=== PATIENT | female | born 1980 | race Caucasian/White ===

== ENCOUNTER → 2017-03-25 | Outpatient (CLI) | payer OTHER ==
[~2017-03-25] MED LIST: ATOR-24 PO; CRDCD/180 PO; CYM/30 PO; PANT1TAB48 PO
[2017-03-25 11:52] LABS: GLUCOSE,FASTING 95 mg/dl (70-99)
[2017-03-25 12:00] LABS: CHOLESTEROL 207 mg/dl (0-200); CHOLESTEROL/HDL RATIO 4.4; HDL CHOLESTEROL 47 mg/dl; TRIGLYCERIDES 121 mg/dl (0-150); VERY LOW DENSITY LIPOPROT CALC 24 mg/dl
== END | disposition home or self-care (01) ==
LOC: C.LABBC 07:32
PROVIDERS: ATTEND Physician Assistant Medical
DX: Z00.00 Encounter for general adult medical examination without abnormal findings (principal)

== ENCOUNTER → 2017-03-27 | Outpatient (CLI) | payer OTHER | END | disposition home or self-care (01) | LOC: C.LABBC 07:30 | PROVIDERS: ATTEND Physician Assistant | DX: R22.1 Localized swelling, mass and lump, neck (principal) ==

== ENCOUNTER → 2017-03-28 | Outpatient (CLI) | payer OTHER ==
--- NOTE | 2017-03-28 15:23 | DIAGNOSTIC IMAGING REPORT ---
SOFT TIS HEAD/NECK-THYROID HISTORY: Pain. Edema. NECK SWELLING COMPARISON: None. FINDINGS: Survey ultrasonic evaluation of the soft tissue neck was performed with attention to patient's stated area of discomfort/nodularity. No ultrasonic abnormalities identified at that site. Survey evaluation of the thyroid demonstrates a 4 mm nodule of the inferior right thyroid lobe considered low suspicion. No additional abnormalities are identified. IMPRESSION: No evidence for mass pathology at the patient's site of tenderness, dysphagia. Incidental note is made of a very low suspicion 4 Millimeter right thyroid nodule The above report was generated using voice recognition software. It may contain grammatical, syntax or spelling errors. Electronically signed by: Arturo Boyd M.D. 03/28/2017 3:21 PM Dictated Date/Time: 03/28/2017 3:19 PM
== END | disposition home or self-care (01) ==
LOC: C.ULTRBC 14:43
PROVIDERS: ATTEND Physician Assistant
DX: R22.1 Localized swelling, mass and lump, neck (principal)

== ENCOUNTER → 2017-04-22 | Outpatient (CLI) | payer OTHER | END | disposition home or self-care (01) | LOC: C.LABBC 08:21 | PROVIDERS: ATTEND Physician Assistant Medical | DX: E83.52 Hypercalcemia (principal) ==

== ENCOUNTER → 2017-04-25 | Outpatient (CLI) | payer OTHER | END | disposition home or self-care (01) | LOC: C.PATHSPEC 11:24 | PROVIDERS: ATTEND Plastic Surgery | DX: L90.5 Scar conditions and fibrosis of skin (principal) ==

== ENCOUNTER → 2017-05-31 | Outpatient (CLI) | payer OTHER ==
--- NOTE | 2017-05-31 14:27 | DIAGNOSTIC IMAGING REPORT ---
THORACIC SPINE 3 VIEWS ROUTINE CLINICAL HISTORY: Thoracic back pain. COMPARISON STUDY: No previous studies for comparison. FINDINGS: There are cholecystectomy clips. There is slight levoscoliosis of the lower thoracic spine and dextroscoliosis of the thoracolumbar junction. Vertebral body heights are maintained. There is no fracture or suspicious lesion within the thoracic spine by radiography. There is mild multilevel disc space narrowing. IMPRESSION: 1. No thoracic spine fracture or subluxation. 2. Mild multilevel degenerative disc disease of the thoracic spine. 3. Minimal shaped curvature of the lower thoracic and upper lumbar spine. Electronically signed by: Tomas Marcos M.D. 05/31/2017 2:25 PM Dictated Date/Time: 05/31/2017 2:24 PM
--- NOTE | 2017-05-31 14:44 | DIAGNOSTIC IMAGING REPORT ---
CERVICAL SPINE 5 VIEWS HISTORY: CERVICALGIA; THORACIC BACK PAIN COMPARISON: None. FINDINGS: The cervical spine is visualized from C1 through the superior endplate of T1. There is no fracture. No subluxation. Disc spaces are preserved. Prevertebral soft tissues and the atlantodens interval are intact. IMPRESSION: No fracture or subluxation within the cervical spine. Electronically signed by: Reece Edward M.D. 05/31/2017 2:43 PM Dictated Date/Time: 05/31/2017 2:40 PM
== END | disposition home or self-care (01) ==
LOC: C.RADBC 14:03
PROVIDERS: ATTEND Physician Assistant Medical
DX: M54.2 Cervicalgia (principal); M54.6 Pain in thoracic spine

== ENCOUNTER → 2017-08-21 | Outpatient (CLI) | payer OTHER ==
[~2017-08-21] MED LIST changes: +CALC600T37 PO; +CHOL2000 PO; +FAMO20TA9 PO; +FLUO20TA27 PO; +GABA-112 PO; +GABA-113 PO; +NXM/40 PO; +ONDA4TAB10 SL; +PANT1TAB3 PO; -PANT1TAB48 PO
== END | disposition home or self-care (01) ==
LOC: C.LABBC 08:13
PROVIDERS: ATTEND Surgery Surgical Oncology
DX: N25.81 Secondary hyperparathyroidism of renal origin (principal); E55.9 Vitamin D deficiency, unspecified

== ENCOUNTER 2017-08-22 19:01 | Emergency (ER) | payer OTHER ==
[~2017-08-22] VITALS: Ht 172.7 cm; Wt 100.0 kg
[~2017-08-22 19:01] MED LIST changes: -CALC600T37 PO; -CHOL2000 PO; -FAMO20TA9 PO; -FLUO20TA27 PO; -GABA-112 PO; -GABA-113 PO; -NXM/40 PO; -ONDA4TAB10 SL
[2017-08-22 19:05] VITALS: TEMP 37.6; Ht 172.7 cm; Wt 100.0 kg
[2017-08-22] MEDS ORDERED: ONDANSETRON INJ 2 MG/ML 2 ML VIAL IV STA ×2 (19:19→21:25)
[2017-08-22] MEDS ORDERED: SODIUM CHLORIDE 0.9% 1000ML 1,000 ML IV STA (19:19)
[2017-08-22 19:33] LABS: BASO % 0.1 %; BASO ABS # 0.01 K/uL (0-0.2); EOS % 0.1 %; EOS ABS # 0.02 K/uL (0-0.5); HEMATOCRIT 42.8 % (37-47); IG# 0.06 K/uL (0.00-0.02); LYMPH % 2.6 %; LYMPH ABS # 0.46 K/uL (1.2-3.4); MEAN CELL VOLUME 89.2 fL (80-100); MEAN CORPUSCULAR HEMOGLOBIN 31.3 pg (25-34); MEAN PLATELET VOLUME 9.3 fL (7.4-10.4); MONO % 2.3 %; MONO ABS # 0.41 K/uL (0.11-0.59); NEUT % 94.6 %; NEUT ABS # 16.72 K/uL (1.4-6.5); PLATELET COUNT 347 K/uL (130-400); RED CELL DISTRIBUTION WIDTH CV 13.3 % (11.5-14.5); RED CELL DISTRIBUTION WIDTH SD 43.4 fL (36.4-46.3); WHITE BLOOD COUNT 17.68 K/uL (4.8-10.8)
--- NOTE | 2017-08-22 19:36 | EMERGENCY ROOM VISIT NOTE ---
History Report prepared by Jose David: Dionisio Santillan Under the Supervision of: Dr. Tyrone Leon M.D. 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 She notes pain around her low abdomen. She notes fevers, loss of appetite, nausea, vomiting, and diarrhea. She notes severe pain on her right abdomen radiating to her back. She currently rates her pain an 8/10 in severity. She has a history of cholecystectomy, hysterectomy. She denies any urinary symptoms. She denies any history of colitis. 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 Review of Systems See HPI for pertinent positives and negatives. A total of ten systems were reviewed and were otherwise negative. Past Medical & Surgical Medical Problems: (1) Anxiety disorder (2) chronic hematuria (3) H/O dilation and evacuation (4) History of supraventricular tachycardia (5) Hypercholesteremia (6) Menorrhagia Surgical Problems: (1) H/O dilation and curettage (2) H/O: hysterectomy (3) History of cholecystectomy (4) History of hysterectomy (5) Hx of cholecystectomy Family History No pertinent family history Social History Smoking Status: Never Smoker Smokeless Tobacco Use: No Alcohol Use: none Drug Use: none Marital Status: Housing Status: lives with family Occupation Status: employed Current/Historical Medications Scheduled Atorvastatin (Lipitor), 40 MG PO Q2D Calcium (Calcium), 600 MG PO BID Cholecalciferol (Vitamin D3), 2,000 INTER.UNIT PO DAILY Esomeprazole Magnesium (Nexium), 40 MG PO QAM Famotidine (Pepcid), 20 MG PO BID Fluoxetine HCl (Pmdd) (Fluoxetine HCl), 70 MG PO QAM Gabapentin (Neurontin), 200 MG PO HS Gabapentin (Neurontin), 300 MG PO HS Ondasetron Odt (Zofran Odt), 4 MG SL Q6H Allergies Coded Allergies: Acetaminophen (Unverified Adverse Reaction, Unknown, NAUSEA, 08/22/17) Hydrocodone (Unverified Adverse Reaction, Unknown, NAUSEA, 08/22/17) Physical Exam Vital Signs Date Time Temp Pulse Resp B/P (MAP) Pulse Ox O2 Delivery O2 Flow Rate FiO2 08/22/17 23:01 110 24 95 08/22/17 23:00 110/58 08/22/17 22:46 115 23 95 08/22/17 22:31 112 22 95 08/22/17 22:30 109/57 08/22/17 22:16 115 26 94 08/22/17 22:01 117 24 94 08/22/17 22:00 123/70 08/22/17 21:47 114 20 120/67 93 08/22/17 21:46 117 17 93 08/22/17 21:37 120/67 08/22/17 21:31 123 16 93 08/22/17 21:16 128 23 94 08/22/17 21:01 125 28 93 08/22/17 21:00 124 08/22/17 20:52 121 20 128/76 94 Room Air 08/22/17 20:49 128/76 08/22/17 19:05 37.6 138 19 132/81 95 Room Air Physical Exam GENERAL: Awake, alert, uncomfortable-appearing, in no distress HENT: Normocephalic, atraumatic. Oropharynx unremarkable. EYES: Normal conjunctiva. Sclera non-icteric. NECK: Supple. No nuchal rigidity. FROM. No JVD. RESPIRATORY: Clear to auscultation. CARDIAC: Regular rate, normal rhythm. Extremities warm and well perfused. Pulses equal. ABDOMEN: Soft, non-distended. Generalized abdominal pain most prominent in RLQ, no peritoneal signs. No rebound or guarding. No masses. RECTAL: Deferred. MUSCULOSKELETAL: Chest examination reveals no tenderness. The back is symmetrical on inspection without obvious abnormality. There is no CVA tenderness to palpation. No joint edema. LOWER EXTREMITIES: Calves are equal size bilaterally and non-tender. No edema. No discoloration. NEURO: Normal sensorium. No sensory or motor deficits noted. SKIN: No rash or jaundice noted. Medical Decision & Procedures ER Provider Diagnostic Interpretation: Radiology results as stated below per my review and radiologist interpretation: ABD/PELVIS IV CONTRAST ONLY CT DOSE: 1276.77 mGy.cm HISTORY: Flank pain RLQ pain TECHNIQUE: Multiaxial CT images of the abdomen and pelvis were performed following the use of intravenous contrast. A dose lowering technique was utilized adhering to the principles of ALARA. COMPARISON STUDY: 09/06/2014 FINDINGS: Minimal dependent basilar atelectasis. Mild fatty infiltration of liver. Prior cholecystectomy. Kidneys enhance uniformly. Bowel pattern is nonobstructive. Several fluid-filled loops of small bowel showing no evidence for distention. Slight hyperemia of the proximal to mid small bowel suggesting mild enteritis. Appendix is normal. Bowel pattern with reference specifically to the colon is unremarkable. Bladder is midline. IMPRESSION: 1. Mild enteritis. 2. Mild reactive small bowel ileus. 3. Normal appendix. 4. Prior cholecystectomy. The above report was generated using voice recognition software. It may contain grammatical, syntax or spelling errors. Electronically signed by: Arturo Boyd M.D. 08/22/2017 8:41 PM Dictated Date/Time: 08/22/2017 8:39 PM Laboratory Results 08/22/17 19:20 Red Blood Count 4.80, Mean Corpuscular Volume 89.2, Mean Corpuscular Hemoglobin 31.3, Mean Corpuscular Hemoglobin Concent 35.0, Mean Platelet Volume 9.3, Neutrophils (%) (Auto) 94.6, Lymphocytes (%) (Auto) 2.6, Monocytes (%) (Auto) 2.3, Eosinophils (%) (Auto) 0.1, Basophils (%) (Auto) 0.1, Neutrophils # (Auto) 16.72, Lymphocytes # (Auto) 0.46, Monocytes # (Auto) 0.41, Eosinophils # (Auto) 0.02, Basophils # (Auto) 0.01 08/22/17 19:20 Test 08/22/17 19:20 08/22/17 20:48 White Blood Count 17.68 K/uL (4.8-10.8) Red Blood Count 4.80 M/uL (4.2-5.4) Hemoglobin 15.0 g/dL (12.0-16.0) Hematocrit 42.8 % (37-47) Mean Corpuscular Volume 89.2 fL (80-100) Mean Corpuscular Hemoglobin 31.3 pg (25-34) Mean Corpuscular Hemoglobin Concent 35.0 g/dl (32-36) Platelet Count 347 K/uL (130-400) Mean Platelet Volume 9.3 fL (7.4-10.4) Neutrophils (%) (Auto) 94.6 % Lymphocytes (%) (Auto) 2.6 % Monocytes (%) (Auto) 2.3 % Eosinophils (%) (Auto) 0.1 % Basophils (%) (Auto) 0.1 % Neutrophils # (Auto) 16.72 K/uL (1.4-6.5) Lymphocytes # (Auto) 0.46 K/uL (1.2-3.4) Monocytes # (Auto) 0.41 K/uL (0.11-0.59) Eosinophils # (Auto) 0.02 K/uL (0-0.5) Basophils # (Auto) 0.01 K/uL (0-0.2) RDW Standard Deviation 43.4 fL (36.4-46.3) RDW Coefficient of Variation 13.3 % (11.5-14.5) Immature Granulocyte % (Auto) 0.3 % Immature Granulocyte # (Auto) 0.06 K/uL (0.00-0.02) Anion Gap 11.0 mmol/L (3-11) Est Creatinine Clear Calc Drug Dose 89.1 ml/min Estimated GFR () 76.2 Estimated GFR (Non- 65.7 BUN/Creatinine Ratio 11.2 (10-20) Calcium Level 8.9 mg/dl (8.5-10.1) Total Bilirubin 0.8 mg/dl (0.2-1) Direct Bilirubin 0.1 mg/dl (0-0.2) Aspartate Amino Transf (AST/SGOT) 20 U/L (15-37) Alanine Aminotransferase (ALT/SGPT) 26 U/L (12-78) Alkaline Phosphatase 82 U/L (45-117) Total Protein 8.2 gm/dl (6.4-8.2) Albumin 3.9 gm/dl (3.4-5.0) Lipase 85 U/L (73-393) Urine Color YELLOW Urine Appearance CLEAR (CLEAR) Urine pH 7.0 (4.5-7.5) Urine Specific [place] 1.027 (1.000-1.030) Urine Protein NEG (NEG) Urine Glucose (UA) NEG (NEG) Urine Ketones 1+ (NEG) Urine Occult Blood TRACE (NEG) Urine Nitrite NEG (NEG) Urine Bilirubin NEG (NEG) Urine Urobilinogen NEG (NEG) Urine Leukocyte Esterase NEG (NEG) Urine WBC (Auto) 1-5 /hpf (0-5) Urine RBC (Auto) 5-10 /hpf (0-4) Urine Hyaline Casts (Auto) 1-5 /lpf (0-5) Urine Epithelial Cells (Auto) 10-20 /lpf (0-5) Urine Bacteria (Auto) NEG (NEG) Urine Test NEG (NEG) Laboratory results reviewed by me Medications Administered Medications (Trade) Dose Ordered Sig/Joel Route Start Time Stop Time Status Last Admin Dose Admin Sodium Chloride 1,000 ml @ 999 mls/hr Q1H1M STAT IV 08/22/17 19:19 08/22/17 20:19 DC 08/22/17 19:30 999 MLS/HR Ondansetron HCl (Zofran Inj) 4 mg NOW STAT IV 08/22/17 19:19 08/22/17 19:21 DC 08/22/17 19:30 4 MG Fentanyl Citrate (Fentanyl Inj) 50 mcg NOW STAT IV 08/22/17 19:50 08/22/17 19:51 DC 08/22/17 19:56 50 MCG Sodium Chloride 2,000 ml @ 999 mls/hr Q2H1M STAT IV 08/22/17 21:25 08/22/17 23:25 DC 08/22/17 21:38 999 MLS/HR Ondansetron HCl (Zofran Inj) 4 mg NOW STAT IV 08/22/17 21:25 08/22/17 21:29 DC 08/22/17 21:38 4 MG Famotidine (Pepcid 20mg Iv Push) 20 mg NOW STAT IV 08/22/17 21:25 08/22/17 21:29 DC 08/22/17 21:38 20 MG Ketorolac Tromethamine (Toradol Inj) 15 mg NOW STAT IV 08/22/17 21:25 08/22/17 21:29 DC 08/22/17 21:38 15 MG ED Course 1926: The patient was evaluated in room A12B. A complete history and physical exam was performed. 2119: I reassessed the patient at this time. She is resting comfortably. 2248: I reassessed the patient at this time. She is feeling better and resting comfortably. I discussed the results and treatment plan with the patient. I answered all pertaining questions that she had. She expressed understanding and verbalized agreement. The patient will be discharged home. Medical Decision I reviewed the patient's past medical history, medications, and the nursing notes as described above. The patient's presentation and history were concerning for appendicitis, gastroenteritis, colitis, diverticulitis, UTI, and renal stone. The patient is a 37-year-old woman who presents emergency Department with generalized abdominal pain with nausea and vomiting per history of present illness. On arrival the patient is uncomfortable but no acute distress, afebrile with heart rate in the 130s with otherwise stable blood pressure. Appears clinically dry. She has generalized abdominal tenderness most prominently in the right lower quadrant. Labs notable for WBC of 17. Otherwise labs unremarkable without any anion gap to suggest acidosis. CT scan demonstrating likely enteritis with possible associated mild ileus. Patient's heart rate improving to 90-100s after IV fluid hydration. The patient was also clinically improved able to tolerate oral liquids. Given CT scan without any concerning emergent findings symptoms most likely secondary to viral gastroenteritis. Plan for supportive care. Encouraged oral hydration at home and was also given strict return instructions. Of note the patient does have a history of hematuria in the past thought to believed to be secondary to sloughing of her bladder wall. She will follow-up with her PCP regarding this and also her presenting symptoms. Findings and plan for follow-up reviewed with patient. Patient agreeable and d/c'd per discharge instructions. Medication Reconcilliation Current Medication List: was personally reviewed by me Blood Pressure Screening Patient's blood pressure: Normal blood pressure Impression Primary Impression: Gastroenteritis Additional Impression: Microscopic hematuria Scribe Attestation The scribe's documentation has been prepared under my direction and personally reviewed by me in its entirety. I confirm that the note above accurately reflects all work, treatment, procedures, and medical decision making performed by me. Departure Information Dispostion Home / Self-Care Prescriptions Famotidine (PEPCID) 20 Mg Tab 20 MG PO BID for 7 Days, #14 TAB Prov: Tyrone Leon M.D. 08/22/17 Ondasetron Odt (ZOFRAN ODT) 4 Mg Tab 4 MG SL Q6H for Nausea, #10 TAB Prov: Tyrone Leon M.D. 08/22/17 Referrals Jorge Rubio PA-C (PCP) Forms HOME CARE DOCUMENTATION FORM, IMPORTANT VISIT INFORMATION Patient Instructions ED Gastroenteritis Viral, ED Hematuria, My [facility] Additional Instructions Please follow up with your primary care physician in the next 1-3 days for re- evaluation and to repeat your urine analysis, which had a small amount of blood. You likely have a viral gastroenteritis. Otherwise, your exam, lab results, and CT scan did not show signs of an emergent condition at this time. Zofran as needed for nausea. Pepcid for acid reduction as directed. Ensure hydration. Advanced BRAT diet slowly as tolerated. Return to the emergency department for worsening symptoms as described in the accompanying instructions. Problem Qualifiers
[2017-08-22] MEDS ORDERED: FLUO20TA27 PO (19:49)
[2017-08-22] MEDS ORDERED: CHOL2000 PO (19:49)
[2017-08-22] MEDS ORDERED: GABA-112 PO (19:49)
[2017-08-22] MEDS ORDERED: NXM/40 PO (19:49)
[2017-08-22] MEDS ORDERED: CALC600T37 PO (19:49)
[2017-08-22] MEDS ORDERED: GABA-113 PO (19:49)
[2017-08-22] MEDS ORDERED: FENTANYL CITRATE INJ 50 MCG/1 ML 2 ML VIAL IV STA (19:50)
[2017-08-22] MEDS ORDERED: OPTIRAY 320 IV PRN (20:00)
[2017-08-22 20:03] LABS: ALBUMIN 3.9 gm/dl (3.4-5.0); CALCIUM 8.9 mg/dl (8.5-10.1); CREATININE 1.09 mg/dl (0.60-1.20); POTASSIUM 3.7 mmol/L (3.5-5.1)
[2017-08-22 20:06] LABS: TOTAL PROTEIN 8.2 gm/dl (6.4-8.2)
--- NOTE | 2017-08-22 20:43 | DIAGNOSTIC IMAGING REPORT ---
ABD/PELVIS IV CONTRAST ONLY CT DOSE: 1276.77 mGy.cm HISTORY: Flank pain RLQ pain TECHNIQUE: Multiaxial CT images of the abdomen and pelvis were performed following the use of intravenous contrast. A dose lowering technique was utilized adhering to the principles of ALARA. COMPARISON STUDY: 09/06/2014 FINDINGS: Minimal dependent basilar atelectasis. Mild fatty infiltration of liver. Prior cholecystectomy. Kidneys enhance uniformly. Bowel pattern is nonobstructive. Several fluid-filled loops of small bowel showing no evidence for distention. Slight hyperemia of the proximal to mid small bowel suggesting mild enteritis. Appendix is normal. Bowel pattern with reference specifically to the colon is unremarkable. Bladder is midline. IMPRESSION: 1. Mild enteritis. 2. Mild reactive small bowel ileus. 3. Normal appendix. 4. Prior cholecystectomy. The above report was generated using voice recognition software. It may contain grammatical, syntax or spelling errors. Electronically signed by: Arturo Boyd M.D. 08/22/2017 8:41 PM Dictated Date/Time: 08/22/2017 8:39 PM
[2017-08-22] MEDS ORDERED: FAMOTIDINE 20MG/5ML IV PUSH IV STA (21:25)
[2017-08-22] MEDS ORDERED: KETOROLAC TROMETHAMINE 30 MG/ML VIAL IV STA (21:25)
[2017-08-22] MEDS ORDERED: SODIUM CHLORIDE 0.9% 1000ML 2,000 ML IV STA (21:25)
[2017-08-22] MEDS ORDERED: FAMO20TA9 PO (22:53)
[2017-08-22] MEDS ORDERED: ONDA4TAB10 SL (22:53)
[2017-08-22 23:00] VITALS: BP 110/58
[2017-08-22 23:01] VITALS: PULSE 110; O2SAT 95
== END 2017-08-22 23:04 | disposition home or self-care (01) ==
LOC: C.EDB 19:03 → C.EDA 23:04
DX: K52.9 Noninfective gastroenteritis and colitis, unspecified (principal); R31.29 Other microscopic hematuria; Z90.49 Acquired absence of other specified parts of digestive tract; Z90.710 Acquired absence of both cervix and uterus; F41.9 Anxiety disorder, unspecified; E78.00 Pure hypercholesterolemia, unspecified; Z79.899 Other long term (current) drug therapy

== ENCOUNTER → 2017-09-10 | Outpatient (CLI) | payer OTHER ==
[~2017-09-10] MED LIST changes: +CALC600T37 PO; +CHOL2000 PO; -CRDCD/180 PO; -CYM/30 PO; +FLUO20TA27 PO; +GABA-112 PO; +GABA-113 PO; +NXM/40 PO; +ONDA4TAB10 SL; -PANT1TAB3 PO
== END | disposition home or self-care (01) ==
LOC: C.PAPS 07:45
PROVIDERS: ATTEND Physician Assistant
DX: Z12.4 Encounter for screening for malignant neoplasm of cervix (principal)

== ENCOUNTER → 2017-09-16 | Outpatient (CLI) | payer OTHER ==
--- NOTE | 2017-09-16 15:04 | MAMMOGRAPHY REPORT ---
BILATERAL DIGITAL DIAGNOSTIC MAMMOGRAM TOMOSYNTHESIS WITH CAD AND TARGETED RIGHT ULTRASOUND: 09/16/2017 CLINICAL HISTORY: 37-year-old woman presents after her provider found a lump in the right upper outer quadrant on recent physical breast exam. Patient is also able to locate the mass, and notes occasio nal pain with pressure from her bra. No skin thickening, erythema or nipple discharge. Baseline exa m. No family history of breast cancer. TECHNIQUE: Bilateral breast tomosynthesis in addition to standard 2D mammography was performed. Curre nt study was also evaluated with a Computer Aided Detection (CAD) system. COMPARISON: No prior exams were available for comparison. BREAST COMPOSITION: There are scattered areas of fibroglandular density in both breasts. FINDINGS: HR angular palpable marker overlies the upper outer middle to posterior right breast, denot ing the palpable lump pointed out by the patient. In the area of concern aligning with the palpable skin marker is a lobulated and circumscribed 2.2 x 2.4 x 2.5 cm mass. No associated architectural di stortion or calcification. No other masses, calcifications, areas of distortion or suspicious calcif ications are seen throughout the remainder of the right breast or in the left breast. Targeted ultrasound was performed in the area of concern in the right 10:00 breast, 6 cm from the nip ple. On palpation, there is a mobile firm mass, approximately 2 cm. On ultrasound, there is a lobul ated and circumscribed anechoic benign simple cyst with evidence of posterior acoustic enhancement, m easuring 2.3 x 1.8 x 2.4 cm. This correlates with the mammographic mass and as palpated and is benig n. No further workup is needed at this time. IMPRESSION: ACR BI-RADS CATEGORY 2: BENIGN, TARGETED ULTRASOUND ACR BI-RADS CATEGORY 2: BENIGN 1. The palpable mass in the right upper outer quadrant correlates with a benign anechoic simple cyst measuring 2.4 cm, seen both mammographically and sonographically. Continued clinical monitoring is recommended. 2. Overall no mammographic evidence of malignancy in the breasts, or targeted sonographic evidence o f malignancy in the right upper outer quadrant. Recommend annual screening mammography once age-appr opriate. These results and recommendations were discussed with the patient at the time of the exam. Approximately 10% of breast cancers are not detected with mammography. A negative mammographic report should not delay biopsy if a clinically suggestive mass is present. Nancy Paul M.D. ay/:09/16/2017 12:03:35 Program Clinician: Nano MONTEZ)(Nayla), [facility] letter sent: Normal 1/2 BI-RADS Code: ACR BI-RADS Category 2: Benign Ultrasound BI-RADS: ACR BI-RADS Category 2: Benign
== END | disposition home or self-care (01) ==
LOC: C.MAMM 11:24
PROVIDERS: ATTEND Physician Assistant
DX: N63.11 Unspecified lump in the right breast, upper outer quadrant (principal)

== ENCOUNTER → 2017-10-10 | Outpatient (CLI) | payer OTHER ==
--- NOTE | 2017-10-10 11:02 | DIAGNOSTIC IMAGING REPORT ---
KUB CLINICAL HISTORY: Nephrolithiasis. Right lower back pain. COMPARISON STUDY: CT of the abdomen and pelvis August 22, 2017. FINDINGS: A few pelvic calcifications were shown to represent phleboliths on prior CT. No urinary calculi are identified. Bowel gas pattern is normal. There is a moderate amount of stool within the colon. There are cholecystectomy clips. IMPRESSION: 1. No urinary calculi identified. 2. No bowel obstruction. 3. Moderate amount stool within the colon. Electronically signed by: Tomas Marcos M.D. 10/10/2017 11:01 AM Dictated Date/Time: 10/10/2017 10:59 AM
== END | disposition home or self-care (01) ==
LOC: C.RADBC 09:52
PROVIDERS: ATTEND Physician Assistant Medical
DX: N20.0 Calculus of kidney (principal)

== ENCOUNTER → 2017-11-25 | Outpatient (CLI) | payer OTHER ==
--- NOTE | 2017-11-26 07:45 | MAMMOGRAPHY REPORT ---
ASPIRATION RIGHT BREAST: 11/25/2017 CLINICAL HISTORY: Ultrasound-guided cyst aspiration for a palpable tender cyst in the 10:[address] measuring 2.4 cm. COMPARISON: Comparison is made to exams dated: 09/16/2017 ultrasound and 09/16/2017 mammogram - [facility]. PATIENT CONSENT: After explaining the risks, benefits and alternatives of the procedure to the patien t, informed consent was obtained verbally and in writing. Specific risks include: bleeding, infection and puncture of adjacent structure. A time out was preformed and the right breast was agreed at the site for cyst aspiration. PROCEDURE DESCRIPTION: The anechoic palpable cystic appearing 2.4 cm mass in the 10:00 right breast w as identified. 1% buffered lidocaine was administered subcutaneously and intraparenchymally as local anesthesia. A 22 gauge needle was advanced to the site of the cyst. Aspiration was preformed and the cyst resolved completely. Approximately 10 cc of clear, straw-colored fluid was sent to the patholo gy department for cytologic analysis. Postprocedure right CC and ML 2D and tomosynthesis images were obtained. The previously observed 2.4 cm mass in the upper outer quadrant of the right breast has resolved, concordant with the aspiration imaging findings of complete resolution. There is no mammographic evidence of malignancy in the rig ht breast. Continued clinical follow-up is recommended, with routine screening mammography beginning at age 40. IMPRESSION: ASPIRATION Status post aspiration to resolution of a palpable 2.4 cm cyst in the 10:00 right breast. The patient will receive notification of these cytology results from her referring physician. Nancy Paul M.D. ay/:11/25/2017 09:05:04 Welding Machine Setter: Mansi Reno, [facility]
--- NOTE | 2017-11-26 07:48 | MAMMOGRAPHY REPORT ---
UNILATERAL RIGHT DIGITAL DIAGNOSTIC MAMMOGRAM TOMOSYNTHESIS: 11/25/2017 CLINICAL HISTORY: Status post ultrasound-guided cyst aspiration of a palpable 2.4 cm cyst in the 10:0 0 right breast. Please refer to the report from right breast ultrasound guided cyst aspiration performed at the same time for full detail. IMPRESSION: Please refer to the report from right breast ultrasound guided cyst aspiration performed at the same time for full detail. Approximately 10% of breast cancers are not detected with mammography. A negative mammographic report should not delay biopsy if a clinically suggestive mass is present. Nancy Paul M.D. ay/:11/25/2017 09:02:29 American History Teacher: Mansi Reno, [facility] BI-RADS Code: n/a
== END | disposition home or self-care (01) ==
LOC: C.MAMM 08:23
PROVIDERS: ATTEND Surgery
DX: N60.01 Solitary cyst of right breast (principal)

== ENCOUNTER → 2018-03-11 | Outpatient (CLI) | payer OTHER ==
[~2018-03-11] MED LIST changes: -ONDA4TAB10 SL
[2018-03-11 10:40] LABS: CHOLESTEROL 242 mg/dl (0-200); GLUCOSE,FASTING 94 mg/dl (70-99); LDL CHOLESTEROL (DIRECT) 167 mg/dl
== END | disposition home or self-care (01) ==
LOC: C.LABBC 07:33
PROVIDERS: ATTEND Physician Assistant Medical
DX: Z00.00 Encounter for general adult medical examination without abnormal findings (principal)

== ENCOUNTER → 2018-03-25 | Outpatient (CLI) | payer OTHER ==
[2018-03-25 13:29] LABS: HEMOGLOBIN A1C 5.2 % (4.5-5.6)
[2018-03-25 13:42] LABS: ALBUMIN 3.6 gm/dl (3.4-5.0); ALKALINE PHOSPHATASE 63 U/L (45-117); ALT/SGPT 20 U/L (12-78); AST/SGOT 18 U/L (15-37); BLOOD UREA NITROGEN 11 mg/dl (7-18); CALCIUM 8.6 mg/dl (8.5-10.1); CARBON DIOXIDE 24 mmol/L (21-32); CREATININE 0.79 mg/dl (0.60-1.20); GLUCOSE 85 mg/dl (70-99); PHOSPHORUS 2.3 mg/dl (2.5-4.9); POTASSIUM 3.9 mmol/L (3.5-5.1); SODIUM 136 mmol/L (136-145); TOTAL PROTEIN 7.6 gm/dl (6.4-8.2)
[2018-03-28 02:22] LABS: INSULIN LIKE GROWTH FACTOR-I 180 ng/mL (53-331)
[2018-03-29 11:38] LABS: TESTOSTERONE,TOTAL 31 ng/dL (2-45)
== END | disposition home or self-care (01) ==
LOC: C.LABBC 09:25
PROVIDERS: ATTEND Internal Medicine Endocrinology, Diabetes & Metabolism
DX: E21.3 Hyperparathyroidism, unspecified (principal); E66.9 Obesity, unspecified; N25.81 Secondary hyperparathyroidism of renal origin; L70.9 Acne, unspecified; R41.3 Other amnesia

== ENCOUNTER → 2018-03-26 | Outpatient (CLI) | payer OTHER ==
--- NOTE | 2018-03-26 12:11 | DIAGNOSTIC IMAGING REPORT ---
THYROID ULTRASOUND HISTORY: SOLITARY THYROID NODULE COMPARISON: Thyroid ultrasound 03/28/2017. FINDINGS: Right lobe: 4.9 x 1.9 x 1.7 cm. A few subcentimeter hypoechoic nodules with the largest measuring 5 mm. Left lobe: 5.0 x 1.6 x 1.5 cm. No nodules. Isthmus: 4 mm in thickness. No nodules. IMPRESSION: A few subcentimeter nodules within the right thyroid lobe. These do not meet sonographic criteria for biopsy. Electronically signed by: Reece Edward M.D. 03/26/2018 12:10 PM Dictated Date/Time: 03/26/2018 12:09 PM
== END | disposition home or self-care (01) ==
LOC: C.ULTRBC 11:41
PROVIDERS: ATTEND Nurse Practitioner Family
DX: E04.2 Nontoxic multinodular goiter (principal)